=== PATIENT | male | born 2000 | race Two or more races ===

== ENCOUNTER 2020-04-06 10:37 | Emergency (ER) | payer OTHER ==
[~2020-04-06] VITALS: Ht 177.8 cm; Wt 65.9 kg
[2020-04-06 10:53] VITALS: BP 131/95
--- NOTE | 2020-04-06 11:29 | PHYS DOC ---
Past History Past Medical History: No Pertinent History Past Surgical History: No Surgical History Alcohol Use: None General Adult EDM: Chief Complaint: CHEST PAIN HPI: HPI: 19-year-old male presents with chest pain. The chest pain started around 7 AM after he got off work. He works overnight. He has been having intermittent cough for the last couple of weeks. He is a smoker. The chest pain was a burning pressure sensation in started after he had a more significant coughing fit with some blood-tinged sputum. He denies vomiting. Denies fever chills. No known COVID-19 exposures. He typically coughs every morning when he wakes up and it decreases throughout the day. Review of Systems: Review of Systems: Constitutional: Denies fever or chills Eyes: Denies change in visual acuity HENT: Denies nasal congestion or sore throat Respiratory: cough without shortness of breath Cardiovascular: Chest pain GI: Denies abdominal pain, nausea, vomiting, bloody stools or diarrhea : Denies dysuria Musculoskeletal: Denies back pain or joint pain Integument: Denies rash Neurologic: Denies headache, focal weakness or sensory changes Endocrine: Denies polyuria or polydipsia Lymphatic: Denies swollen glands Psychiatric: Denies depression or anxiety Heart Score: HEART Score for Chest Pain: HEART Score for Chest Pain Response (Comments) Value History Slighlty/Non-Suspicious 0 ECG Normal 0 Age < 45 0 Risk Factors 1 or 2 Risk Factors 1 Troponin < Normal Limit 0 Total 1 Risk Factors: Risk Factors: DM, Current or recent (<one month) smoker, HTN, HLP, family history of CAD, obesity. Risk Scores: Score 0 - 3: 2.5% MACE over next 6 weeks - Discharge Home Score 4 - 6: 20.3% MACE over next 6 weeks - Admit for Clinical Observation Score 7 - 10: 72.7% MACE over next 6 weeks - Early Invasive Strategies Allergies: Allergies: Allergies Coded Allergies Type Severity Reaction Last Updated Verified No Known Drug Allergies 04/06/20 No Physical Exam: PE: Constitutional: Well developed, well nourished, no acute distress, non-toxic appearance. [] HENT: Normocephalic, atraumatic, bilateral external ears normal, oropharynx moist, no oral exudates, nose normal. [] Eyes: PERRLA, EOMI, conjunctiva normal, no discharge. [] Neck: Normal range of motion, no tenderness, supple, no stridor. [] Cardiovascular:Heart rate regular rhythm, no murmur [] Lungs & Thorax: Bilateral breath sounds clear to auscultation [] Abdomen: Bowel sounds normal, soft, no tenderness, no masses, no pulsatile masses. [] Skin: Warm, dry, no erythema, no rash. [] Back: No tenderness, no CVA tenderness. [] Extremities: No tenderness, no cyanosis, no clubbing, ROM intact, no edema. [] Neurologic: Alert and oriented X 3, normal motor function, normal sensory function, no focal deficits noted. [] Psychologic: Affect normal, judgement normal, mood normal. [] Current Patient Data: Vital Signs: Vital Signs Date Time Temp Pulse Resp B/P (MAP) Pulse Ox O2 Delivery O2 Flow Rate FiO2 04/06/20 10:53 98.4 80 18 131/95 (107) 99 EKG: EKG: Sinus rhythm, rate 69, normal axis, no ST elevations or depressions. [] Radiology/Procedures: Radiology/Procedures: [] Impressions: CHEST AP ONLY History: Chest pain Comparison: None. Findings: Single view of the chest is submitted. There is no infiltrate, pneumothorax, or effusion. The pericardial cardiac silhouette is within normal limits in size. Impression: 1. There is no radiographic evidence of acute cardiopulmonary disease. Electronically signed by: Ramona Antunez MD (04/06/2020 11:34 AM) [id number] DICTATED AND SIGNED BY: RAMONA ANTUNEZ MD DATE: 04/06/20 1134 CC: LONI HAN DO; PCP,NO ~ Course & Med Decision Making: Course & Med Decision Making Pertinent Labs and Imaging studies reviewed. (See chart for details) The patient's labs are unremarkable. His chest x-ray is unremarkable. His EKG is unremarkable. His troponin is negative. I believe the patient has had some blood-tinged sputum from coughing hard. I have given him a GI cocktail to coat the soreness in his throat. His heart score is a 1. He is stable for discharge at this time. [] Dragon Disclaimer: Dragon Disclaimer: This electronic medical record was generated, in whole or in part, using a voice recognition dictation system. Departure Departure: Impression: Primary Impression: Chest pain Qualified Codes: R07.9 - Chest pain, unspecified Additional Impression: Cough Disposition: HOME/RESIDENCE PRIOR TO ADM Condition: STABLE Referrals: PCP,NO (PCP) Patient Instructions: Chest Pain (Nonspecific), [id number] Justification of Admission: Justification of Admission: Justification of Admission Dx: N/A LONI HAN DO Apr 06, 2020 11:29
[2020-04-06] MEDS ORDERED: LIDO:MAALOX 1:1 20 ML SINGLE DOSE. PO ONE (11:30)
--- NOTE | 2020-04-06 11:37 | RAD ---
CHEST AP ONLY History: Chest pain Comparison: None. Findings: Single view of the chest is submitted. There is no infiltrate, pneumothorax, or effusion. The pericardial cardiac silhouette is within normal limits in size. Impression: 1. There is no radiographic evidence of acute cardiopulmonary disease. Electronically signed by: Juan Daniel Fink MD (04/06/2020 11:34 AM) [id number]
[2020-04-06 12:01] LABS: BASO % 1 % (0-3); EOS # 0.1 x10^3/uL (0.0-0.7); EOS % 1 % (0-3); HEMATOCRIT 45.9 % (39.0-53.0); HEMOGLOBIN 15.6 g/dL (13.0-17.5); LYMPH # 2.2 x10^3/uL (1.0-4.8); LYMPH % 36 % (24-48); MEAN CORPUSCULAR HEMOGLOBIN 31 pg (25-35); MEAN CORPUSCULAR HGB CONC 34 g/dL (31-37); MEAN CORPUSCULAR VOLUME 90 fL (79-100); MONO # 0.6 x10^3/uL (0.0-1.1); MONO % 9 % (0-9); NEUT # 3.2 x10^3uL (1.8-7.7); NEUT % 53 % (31-73); PLATELET COUNT 273 x10^3/uL (140-400); RED CELL DISTRIBUTION WIDTH 12.5 % (11.5-14.5); WHITE BLOOD COUNT 6.1 x10^3/uL (4.0-11.0)
[2020-04-06 12:06] LABS: GFR 96.3; POTASSIUM 3.4 mmol/L (3.5-5.1)
[2020-04-06 12:12] LABS: ALBUMIN 4.1 g/dL (3.4-5.0); ALBUMIN/GLOBULIN RATIO 1.1 (1.0-1.7); TOTAL BILIRUBIN 0.3 mg/dL (0.2-1.0); TOTAL PROTEIN 7.8 g/dL (6.4-8.2)
--- NOTE | 2020-04-06 19:58 | EKG ---
[address] [address] Test Date: 2020-04-06 Test Time: 11:10:44 Pat Name: ELENA RUEDA Department: Room: Gender: M Manager Of Compliance: : 2000 Requested By: LONI HAN Order Number: [id number] Reading MD: Measurements Intervals [place] Rate: 69 P: 40 [place]: 166 QRS: 36 QRSD: 88 T: 27 QT: 378 QTc: 411 Interpretive Statements SINUS RHYTHM OTHERWISE NORMAL ECG RI6.02 No previous ECG available for comparison
== END 2020-04-06 12:40 | disposition home or self-care (01) ==
LOC: ER 10:37
DX: R07.89 Other chest pain (principal); R05 Cough; R09.3 Abnormal sputum
CPT/HCPCS: 36415; 71045; 80053; 84484; 85025; 93005; 99285

== ENCOUNTER 2020-09-20 01:37 | Emergency (ER) | payer OTHER ==
[~2020-09-20] VITALS: Ht 177.8 cm; Wt 65.9 kg
--- NOTE | 2020-09-20 01:46 | PHYS DOC ---
Past History Past Medical History: No Pertinent History Past Surgical History: No Surgical History Alcohol Use: None General Adult HPI: HPI: '..". I did something stupid.. I drank to much tonight.....about a bottle 1/2 bottle of [employer] [place] and took 3 of my Hydrocodones tonight... I got the hydro's for my dental pain... I got a follow up dental apt. ..Well I guess ..I went to sleep...and my thought I was having a seizure..be cause I started to throw up...I had a seizure once when I got a head injury playing foot ball in high school..... but I didnt have a seizure.. I didnt bite my tongue and.. or wet my self.. I probably need to drink less.. my dad an alcoholic... I just want to go home and get some sleep... I got a shift to cover in the morning.... I guess they paul paniced....because they could not wake me up at first... and started CPR on me...." " ..Look I am fine... I just drank a little too much alcohol tonight.. and that with the dental pain meds..it knocked me on my butt"... " I don't want any labs or x ray ..ekg......Just let me go home.. and I will not make this mistake again..." " ..I am not on any other drugs.." Patient is a 19 year old male who presents with above hx. and complaints of excessive alcohol intake tonight and taking 3 hydrocodone's which he had for dental pain. Patient issued the hydrocodone's for dental pain in teeth 17 and 18. Patient does admit to drinking approximately a little over one half bottle of [place] [employer] tonight. Patient does admit to seizure when he was in high school from head injury playing football in 2016.. At that time he was on some anti seizure meds but has not been on any meds for years. Patient has had some recent problems with stress related to working in the [employer] at [employer]. 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 Keira darnell states he has no pain. Does not want any work-up at all. Request to be discharged immediately. Did talk to she advised that he does have night tremors when he first falls asleep. She advised he did drink excessively tonight and earlier he did attempt to vomit. She advises she called the ambulance when she could not get him to wake up. She advises side arm was put up so there was no danger with the weapon in the house. . Patient is reportedly not suicidal or homicidal and his also confirms these are not risks. She was concerned that he did drink too much alcohol tonight. Patient does smoke tobacco. Did have an ED evaluation in 04/06/2020 for chest pain and cough. Patient denies any travel or specific ill contacts. Pt reports in good health and works out every day.. Frequent PT testing ect. 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 Review of Systems: Review of Systems: Constitutional: Denies fever or chills Eyes: Denies change in visual acuity HENT: Denies nasal congestion or sore throat . Complaints of dental pain Respiratory: Denies cough or shortness of breath Cardiovascular: Denies chest pain or edema GI: Denies abdominal pain, bloody stools or diarrhea .Hx.of nausea, vomiting, x1 : Denies dysuria Musculoskeletal: Denies back pain or joint pain Integument: Denies rash Neurologic: Denies headache, focal weakness or sensory changes . History of possible seizure Endocrine: Denies polyuria or polydipsia Lymphatic: Denies swollen glands Psychiatric: Denies depression or anxiety. Denies suicidal or homicidal ideation. Does admit to consumption of excessive amount of alcohol tonight. Family History: Family History: Father has history of alcoholism, Current Medications: Current Meds: See nursing for home meds Allergies: Allergies: Allergies Coded Allergies Type Severity Reaction Last Updated Verified No Known Drug Allergies 04/06/20 No Physical Exam: PE: Constitutional: Well developed, well nourished, no acute distress, non-toxic appearance. [] HENT: Normocephalic, atraumatic, bilateral external ears normal, oropharynx moist, no oral exudates, nose normal. Small scar right eyebrow. No bite gaspar of tongue. Does have pain and teeth 17 and 18 Eyes: PERRLA, EOMI, conjunctiva normal, no discharge. [] Neck: Normal range of motion, no tenderness, supple, no stridor. [] Cardiovascular:Heart rate regular rhythm, no murmur [] Lungs & Thorax: Bilateral breath sounds clear to auscultation [] Abdomen: Bowel sounds normal, soft, no tenderness, no masses, no pulsatile masses. Circumcised male. Skin: Warm, dry, no erythema, no rash. [] Back: No tenderness, no CVA tenderness. [] Extremities: No tenderness, no cyanosis, no clubbing, ROM intact, no edema. [] Neurologic: Alert and oriented X 3, normal motor function, normal sensory function, no focal deficits noted. [] DTRs +2 patella and brachial. No drift. 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 Amatory without problems. Psychologic: Affect normal, judgement normal, mood normal. [] EKG: EKG: Refuses [] Radiology/Procedures: Radiology/Procedures: Refuses x-rays or CT [] Heart Score: HEART Score for Chest Pain: HEART Score for Chest Pain Response (Comments) Value History Slighlty/Non-Suspicious 0 ECG Normal 0 Age < 45 0 Risk Factors 1 or 2 Risk Factors 1 Total 1 Risk Factors: Risk Factors: DM, Current or recent (<one month) smoker, HTN, HLP, family history of CAD, obesity. Pt. declined lab,work or EKG or CXR. Pt.monitor showed normal sinus rhythm. No obvious acute morphology Risk Scores: Score 0 - 3: 2.5% MACE over next 6 weeks - Discharge Home Score 4 - 6: 20.3% MACE over next 6 weeks - Admit for Clinical Observation Score 7 - 10: 72.7% MACE over next 6 weeks - Early Invasive Strategies Course & Med Decision Making: Course & Med Decision Making Pertinent Labs and Imaging studies reviewed. (See chart for details) Patient currently refusing labs and x-rays. Did agree to an Accu-Chek= 107. Patient encouraged not to drink excessive alcohol and especially not take hydrocodone when he does drink alcohol. Patient advised not to drive or do hazardous activity until released by primary. Patient return if any concerns. Consider follow-up counseling center if he is having problems with alcohol abuse. Keep dental follow-up follow-up. Impression: 1. Excessive alcohol intake 2. Dental pain- teeth 17 and18 3. Possible seizure or night tremors Arik Disclaimer: Arik Disclaimer: This electronic medical record was generated, in whole or in part, using a voice recognition dictation system. Departure Departure: Referrals: PCP,NO (PCP) Arik Disclaimer This chart was dictated in whole or in part using Voice Recognition software in a busy, high-work load, and often noisy Emergency Department environment. It may contain unintended and wholly unrecognized errors or omissions. Dragon Disclaimer This chart was dictated in whole or in part using Voice Recognition software in a busy, high-work load, and often noisy Emergency Department environment. It may contain unintended and wholly unrecognized errors or omissions. LILIAN LYNN MD Sep 20, 2020 01:46
[2020-09-20 02:20] VITALS: BP 134/68
== END 2020-09-20 02:20 | disposition home or self-care (01) ==
LOC: ER 01:37
DX: R78.0 Finding of alcohol in blood (principal); K08.89 Other specified disorders of teeth and supporting structures; R11.2 Nausea with vomiting, unspecified
CPT/HCPCS: 82947; 99283

== ENCOUNTER 2020-12-01 08:12 | Emergency (ER) | payer SELFPAY ==
[~2020-12-01] VITALS: Ht 177.8 cm; Wt 75.6 kg
[2020-12-01] MEDS ORDERED: ONDANSETRON PF 4 MG/2 ML VIAL. IVP ONE (08:30)
[2020-12-01] MEDS ORDERED: ONDANSETRON ODT 4 MG TAB.RAPDIS ONE (08:31)
--- NOTE | 2020-12-01 08:38 | RAD ---
XR CHEST 1V History: Reason: cough / Spl. Instructions: / History: Comparison: April 06, 2020 Findings: Ill-defined right basilar opacities. No pleural effusion. No pneumothorax. Normal heart size. Impression: 1. Ill-defined right basilar opacities, may represent atelectasis or developing infiltrates includin g viral pneumonia. Electronically signed by: Herb Dumont DO (12/01/2020 8:36 AM) [facility]
[2020-12-01] MEDS ORDERED: FAMOTIDINE 20 MG/2 ML VIAL ONE (08:40)
[2020-12-01] MEDS ORDERED: DEXAMETHASONE SOD PHOS 10 MG/ML VIAL. ONE (08:41)
[2020-12-01] MEDS ORDERED: FAMOTIDINE 20 MG TABLET PO ONE (08:45)
[2020-12-01] MEDS ORDERED: DEXAMETHASONE SOD PHOS 10 MG/ML VIAL. IV ONE (08:45)
[2020-12-01] MEDS ORDERED: ONDANSETRON ODT 4 MG TAB.RAPDIS PO ONE (08:45)
[2020-12-01] MEDS ORDERED: FAMOTIDINE 20 MG/2 ML VIAL IVP ONE (09:00)
[2020-12-01 09:10] LABS: BASO % 0 % (0-3); EOS % 0 % (0-3); HEMATOCRIT 42.5 % (39.0-53.0); HEMOGLOBIN 14.2 g/dL (13.0-17.5); LYMPH # 1.3 x10^3/uL (1.0-4.8); LYMPH % 8 % (24-48); MEAN CORPUSCULAR HEMOGLOBIN 30 pg (25-35); MEAN CORPUSCULAR HGB CONC 34 g/dL (31-37); MEAN CORPUSCULAR VOLUME 89 fL (79-100); MONO # 0.6 x10^3/uL (0.0-1.1); MONO % 3 % (0-9); NEUT # 15.6 x10^3uL (1.8-7.7); NEUT % 89 % (31-73); PLATELET COUNT 365 x10^3/uL (140-400); RED BLOOD COUNT 4.76 x10^6/uL (4.30-5.70); RED CELL DISTRIBUTION WIDTH 12.3 % (11.5-14.5); WHITE BLOOD COUNT 17.6 x10^3/uL (4.0-11.0)
[2020-12-01 09:22] LABS: CALCIUM 9.5 mg/dL (8.5-10.1); CREATININE 1.3 mg/dL (0.7-1.3); GFR 70.4; POTASSIUM 3.2 mmol/L (3.5-5.1)
[2020-12-01] MEDS ORDERED: IV NORMAL SALINE 1,000ML 1,000 ML IV ONE (09:30)
[2020-12-01 09:35] LABS: ALBUMIN 3.6 g/dL (3.4-5.0); ALBUMIN/GLOBULIN RATIO 0.7 (1.0-1.7); C REACTIVE PROTEIN 123.3 mg/L (0-3.3); TOTAL BILIRUBIN 1.8 mg/dL (0.2-1.0); TOTAL PROTEIN 9.1 g/dL (6.4-8.2)
[2020-12-01] MEDS ORDERED: ONDA4TAB7 PO (10:14)
[2020-12-01] MEDS ORDERED: GUAI118L13 PO (10:14)
[2020-12-01] MEDS ORDERED: FAMO-63 PO (10:14)
[2020-12-01] MEDS ORDERED: PRED50TA PO (10:14)
--- NOTE | 2020-12-01 10:14 | PHYS DOC ---
Past History Past Medical History: Asthma, Seizure Past Surgical History: No Surgical History Alcohol Use: None Adult General Chief Complaint Chief Complaint: HEMATEMESIS/VOMITING BLOOD [facility] HPI Patient is a 20-year-old male who presents to the emergency room complaining of cough, body aches, nausea, vomiting, diarrhea. Patient states that he started having some cough and shortness of breath earlier this week. He then developed some nausea and vomiting. He states that last night he had a large amount of vomiting and he had some blood specks in his vomit this morning. He states that he is also been having diarrhea and sometimes has diarrhea when he vomits. He states that his chest feels tight and that he does feel short of breath when he gets up and moves around. He is able to talk and walk at the same time and he still able to walk to the bathroom without difficulty. He has not had any kind of fevers. Does have a history of asthma but does not have an inhaler at home. Review of Systems Review of Systems Complete ROS is negative unless otherwise documented in HPI Current Medications Current Medications Current Medications Medications (Trade) Dose Ordered Sig/Jesus Start Time Stop Time Status Last Admin Dose Admin Dexamethasone Sodium Phosphate (Decadron) 10 mg STK-MED ONCE 12/01/20 08:41 12/01/20 08:41 DC Famotidine (Pepcid Vial) 20 mg 1X ONCE 12/01/20 09:00 12/01/20 09:01 DC 12/01/20 08:52 20 MG Famotidine (Pepcid) 20 mg 1X ONCE 12/01/20 08:45 12/01/20 08:46 DC Ondansetron HCl (Zofran Odt) 4 mg 1X ONCE 12/01/20 08:45 12/01/20 08:46 DC 12/01/20 08:35 4 MG Ondansetron HCl (Zofran) 4 mg 1X ONCE 12/01/20 08:30 12/01/20 08:35 DC Sodium Chloride 1,000 ml @ 1,000 mls/hr 1X ONCE 12/01/20 09:30 12/01/20 10:29 Allergies Allergies Allergies Coded Allergies Type Severity Reaction Last Updated Verified No Known Drug Allergies 04/06/20 No Physical Exam Physical Exam General: Awake, alert, NAD. Well Nourished, well hydrated. Cooperative HEENT: Atraumatic, EOMI, PERRL, airway patent, moist oral mucosa Neck: Supple, trachea midline Respiratory: Decreased breath sounds bilaterally with minimal wheezing, normal effort, no wheezing/crackles CV: Tachycardic, no murmur, cap refill <2 GI: Soft, nondistended, nontender, no masses MSK: No obvious deformities Skin: Warm, dry, intact Neuro: A&O x3, speech NL, sensory and motor grossly intact, no focal deficits Psych: Normal affect, normal mood, not suicidal or homicidal Current Patient Data Vital Signs Vital Signs Date Time Temp Pulse Resp B/P (MAP) Pulse Ox O2 Delivery O2 Flow Rate FiO2 12/01/20 08:13 100.0 115 22 124/84 (97) 93 Room Air Lab Results Laboratory Tests Test 12/01/20 08:50 White Blood Count 17.6 x10^3/uL (4.0-11.0) H Red Blood Count 4.76 x10^6/uL (4.30-5.70) Hemoglobin 14.2 g/dL (13.0-17.5) Hematocrit 42.5 % (39.0-53.0) Mean Corpuscular Volume 89 fL (79-100) Mean Corpuscular Hemoglobin 30 pg (25-35) Mean Corpuscular Hemoglobin Concent 34 g/dL (31-37) Red Cell Distribution Width 12.3 % (11.5-14.5) Platelet Count 365 x10^3/uL (140-400) Neutrophils (%) (Auto) 89 % (31-73) H Lymphocytes (%) (Auto) 8 % (24-48) L Monocytes (%) (Auto) 3 % (0-9) Eosinophils (%) (Auto) 0 % (0-3) Basophils (%) (Auto) 0 % (0-3) Neutrophils # (Auto) 15.6 x10^3uL (1.8-7.7) H Lymphocytes # (Auto) 1.3 x10^3/uL (1.0-4.8) Monocytes # (Auto) 0.6 x10^3/uL (0.0-1.1) Eosinophils # (Auto) 0.0 x10^3/uL (0.0-0.7) Basophils # (Auto) 0.0 x10^3/uL (0.0-0.2) Platelet Estimate Pending Sodium Level 137 mmol/L (136-145) Potassium Level 3.2 mmol/L (3.5-5.1) L Chloride Level 95 mmol/L (98-107) L Carbon Dioxide Level 26 mmol/L (21-32) Anion Gap 16 (6-14) H Blood Urea Nitrogen 12 mg/dL (8-26) Creatinine 1.3 mg/dL (0.7-1.3) Estimated GFR (Cockcroft-Gault) 70.4 BUN/Creatinine Ratio 9 (6-20) Glucose Level 108 mg/dL (70-99) H Calcium Level 9.5 mg/dL (8.5-10.1) Total Bilirubin 1.8 mg/dL (0.2-1.0) H Aspartate Amino Transferase (AST) 38 U/L (15-37) H Alanine Aminotransferase (ALT) 38 U/L (16-63) Alkaline Phosphatase 84 U/L (46-116) Troponin I Quantitative < 0.017 ng/mL (0-0.055) C-Reactive Protein 123.3 mg/L (0-3.3) H BT-Ott-D-Type Natriuretic Peptide 40 pg/mL (0-124) Total Protein 9.1 g/dL (6.4-8.2) H Albumin 3.6 g/dL (3.4-5.0) Albumin/Globulin Ratio 0.7 (1.0-1.7) L EKG EKG [] Radiology/Procedures Radiology/Procedures [] Heart Score Risk Factors: Risk Factors: DM, Current or recent (<one month) smoker, HTN, HLP, family history of CAD, obesity. Risk Scores: Risk Factors: DM, Current or recent (<one month) smoker, HTN, HLP, family history of CAD, obesity. Course & Med Decision Making Course & Med Decision Making Pertinent Labs and Imaging studies reviewed. (See chart for details) Patient is a 20-year-old male who presents to the emergency room with cough, shortness of breath, body aches, nausea, vomiting, diarrhea, loss of taste. At this time there is concern for the novel coronavirus 19. Risk stratifying work- up was ordered including chest x-ray, d-dimer, CPK, CRP, LDH, troponin, ferritin, CBC, CMP. Due to concern of COVID-19 I have discussed the importance of quarantining with the patient. I have discussed with them that they should avoid grocery stores, gas stations, pharmacies, work, friends/family's homes. I discussed with him that it is important that they do not expose themselves to anyone else for the next 14 days. Chest x-ray does show infiltrates at this time and patient will be treated with empiric antibiotics. I have discussed with the patient the course of the illness and we have discussed strict return precautions. At this time patient does not need admission as they are stable, however it is possible that they may get worse over the next few days and we have discussed the importance of coming back if they develop severe shortness of breath or any other symptoms that they are concerned about. Patient's test results and vitals while in the ED were fully reviewed and discussed with the patient. Patient is stable and at this time does not need admission to the hospital. We have discussed strict return precautions and the importance of following up with their Primary Care Physician. Patient stated understanding and was given an opportunity to ask any questions. Dragon Disclaimer Dragon Disclaimer This electronic medical record was generated, in whole or in part, using a voice recognition dictation system. Departure Departure: Impression: Primary Impression: Suspected 2019 novel coronavirus infection Disposition: 01 DC HOME SELF CARE/HOMELESS Condition: STABLE Referrals: PCP,ARIEL (PCP) Patient Instructions: Shortness of Breath Additional Instructions: Thank you for visiting [facility]. We appreciate you trusting us with your care. If any additional problems come up please don't hesitate to return to visit us. Follow up with your primary care provider so they can plan additional care if needed and know about the problem that you had today. If symptoms worsen come back to the Emergency Department. Any concerning symptoms that start such as chest pain, shortness of air, weakness or numbness on one side of the body, running high fevers or any other concerning symptoms return to the ER. You have a viral syndrome which may include symptoms like muscle aches, fevers, chills, runny nose, cough, sneezing, sore throat, nausea, vomiting, or diarrhea. One of the potential viruses that you may have is SARS-CoV-2, the virus that causes COVID-19, also known as the Coronavirus. You are just as likely to have a different viral infection such as the common cold, flu, etc. Most patients with the Coronavirus have mild symptoms and recover on their own. Resting, staying hydrated, and sleep based on known cases can be helpful. As of todays visit, you are well enough to go home and treat your symptoms with oral fluids and over the counter medications. Coronavirus testing is not performed on most people with mild symptoms who are being discharged from the emergency department. If Coronavirus testing was performed today the results will not be available for possibly up to 3-4 days. If your result is positive you will be contacted. Please follow the following precautions at home: 1. Stay home except to get medical care. 2. As advised by the CDC, we recommend that you stay in your home and minimize contact with other people. We do not want you to spread the infection. 3. Those who are older or have significant medical issues may have more severe symptoms from this infection. We recommend self-isolation FOR AT LEAST 7 DAYS after your 1st day of symptoms. AFTER you feel better please wait AT LEAST ANOTHER WEEK before returning to regular activities and being around other people. 4. IF you become sicker and have difficulty breathing, chest pain, are unable to eat/drink, severe vomiting, diarrhea, or weakness you may need to return to the Emergency Department. 5. You should restrict activities outside of your home, except for getting medical care. DO NOT go to work, school, or public areas. Avoid using public transportation, ride sharing, or taxis. 6. Separate yourself from other people in your home. You should use a separate bathroom if possible. 7. Avoid sharing personal household items such as dishes, cups, eating utensils, towels, etc. 8. Clean all high touch surfaces every day (door knobs, counter tops, etc). Use a household cleaning spray or wipe per label instructions. 9. Clean your hands often. Wash your hands with soap and water for at least 20 seconds. 10. Cover your mouth and nose when you cough or sneeze. 11. Throw used tissues in the trash and immediately wash your hands. For additional resources please visit the CDC website or the [facility] ([phone]), you may also call 211 for further information. Scripts Ondansetron Hcl (ZOFRAN) 4 Mg Tablet 1 TAB PO Q6HRS PRN for NAUSEA, #20 TAB Prov: CINDY MARTINEZ MD 12/01/20 Famotidine (PEPCID) 20 Mg Tablet 1 TAB PO BID for gastritis, #10 TAB 0 Refills Prov: CIDNY MARTINEZ MD 12/01/20 Guaifenesin/Codeine Phosphate (GUAIFENESIN-CODEINE SYRUP) 118 Ml Liquid 5 ML PO Q6HRS PRN for COUGH, #120 ML Prov: CINDY MARTINEZ MD 12/01/20 Prednisone (PREDNISONE) 50 Mg Tablet 1 TAB PO DAILY for covid, #5 TAB You received this medication in the emergency room today. You will starting your next dose tomorrow. Prov: CINDY MARTINEZ MD 12/01/20 CINDY MARTINEZ MD Dec 01, 2020 10:14
[2020-12-01] MEDS ORDERED: guaiFENesin/CODEINE 100mg/10mg 5 ML LIQUID PO PRN (10:15)
[2020-12-01 10:20] VITALS: BP 129/72
[2020-12-01] MEDS ORDERED: guaiFENesin/CODEINE 100mg/10mg 5 ML LIQUID PO ONE (10:30)
[2020-12-01 14:03] LABS: % ATYL 3 % (0-0); % BANDS 7 % (0-9); % LYMPHS 11 % (24-48); % MONOS 1 % (0-10); % SEGS 78 % (35-66)
[2020-12-01 14:04] LABS: PLT ESTIMATE ADEQUATE (ADEQUATE)
== END 2020-12-01 10:50 | disposition home or self-care (01) ==
LOC: ER 08:12
DX: J45.909 Unspecified asthma, uncomplicated (principal); R06.02 Shortness of breath; Z20.822 Contact with and (suspected) exposure to COVID-19
CPT/HCPCS: 36415; 71045; 80053; 83880; 84484; 85007; 85025; 86140; 96361; 96374; 96375; 99285; C9803; J1100; J3490; J7030; Q0162; U0003

== ENCOUNTER 2020-12-02 22:41 | Emergency (ER) | payer SELFPAY ==
[~2020-12-02] VITALS: Ht 177.8 cm; Wt 75.6 kg
[~2020-12-02 22:41] MED LIST: FAMO-63 PO; GUAI118L13 PO; ONDA4TAB7 PO; PRED50TA PO
[2020-12-02] MEDS ORDERED: guaiFENesin/CODEINE 100mg/10mg 5 ML LIQUID PO PRN (23:45)
[2020-12-03] MEDS ORDERED: DEXAMETHASONE 4 MG TABLET PO ONE
[2020-12-03] MEDS ORDERED: ONDANSETRON ODT 4 MG TAB.RAPDIS PO ONE
[2020-12-03] MEDS ORDERED: DOXY100C2 PO (00:27)
[2020-12-03 00:50] VITALS: BP 124/60
[2020-12-03] MEDS ORDERED: DOXYCYCLINE HYCLATE 100 MG TABLET PO ONE (01:00)
--- NOTE | 2020-12-23 02:13 | PHYS DOC ---
Past History Past Medical History: Asthma, Seizure Past Surgical History: No Surgical History Alcohol Use: None Adult General Chief Complaint Chief Complaint: SHORTNESS OF BREATH HPI HPI Patient is a 20-year-old male with a past medical history significant for asthma, who presents with a 2-day history of cough, some shortness of breath and nausea. Patient was in the emergency department day before and Covid results pending. Review of Systems Review of Systems Review of systems otherwise unremarkable except noted in HPI Current Medications Current Medications Current Medications Medications (Trade) Dose Ordered Sig/Jesus Start Time Stop Time Status Last Admin Dose Admin Dexamethasone (Decadron) 6 mg 1X ONCE 12/03/20 00:00 12/03/20 00:01 DC 12/03/20 00:20 6 MG Doxycycline Hyclate (Vibra-Tab) 100 mg 1X ONCE 12/03/20 01:00 12/03/20 01:01 DC 12/03/20 00:45 100 MG Guaifenesin/ Codeine Phosphate (Robitussin Ac) 10 ml PRN Q6HRS PRN 12/02/20 23:45 12/03/20 01:28 DC 12/03/20 00:20 10 ML Ondansetron HCl (Zofran Odt) 4 mg 1X ONCE 12/03/20 00:00 12/03/20 00:01 DC 12/03/20 00:20 4 MG Allergies Allergies Allergies Coded Allergies Type Severity Reaction Last Updated Verified No Known Drug Allergies 04/06/20 No Physical Exam Physical Exam Constitutional: Well developed, well nourished, no acute distress, non-toxic appearance. [] HENT: Normocephalic, atraumatic, bilateral external ears normal, oropharynx moist, no oral exudates, nose normal. [] Cardiovascular: Sinus tachycardia Lungs & Thorax: Bilateral rhonchi with wheeze Abdomen: Bowel sounds normal, soft, no tenderness, no masses, no pulsatile masses. [] Skin: Warm, dry, no erythema, no rash. [] Extremities: No tenderness, no cyanosis, no clubbing, ROM intact, no edema. [] Neurologic: Alert and oriented X 3, normal motor function, normal sensory function, no focal deficits noted. [] Psychologic: Affect normal, judgement normal, mood normal. [] Current Patient Data Vital Signs Vital Signs Date Time Temp Pulse Resp B/P (MAP) Pulse Ox O2 Delivery O2 Flow Rate FiO2 12/03/20 00:50 98.6 100 124/60 (81) 95 12/02/20 22:41 18 Room Air EKG EKG [] Radiology/Procedures Radiology/Procedures []Findings: Ill-defined right basilar opacities. No pleural effusion. No pneumothorax. Poornima l heart size. Impression: 1. Ill-defined right basilar opacities, may represent atelectasis or developing infiltrates including viral pneumonia. Electronically signed by: Herb Dumont DO (12/01/2020 8:36 AM) [facility] Heart Score C/O Chest Pain: No Risk Factors: Risk Factors: DM, Current or recent (<one month) smoker, HTN, HLP, family history of CAD, obesity. Risk Scores: Risk Factors: DM, Current or recent (<one month) smoker, HTN, HLP, family history of CAD, obesity. Course & Med Decision Making Course & Med Decision Making Patient is a 20-year-old male who presents with 2 days of dry cough, nausea Vital signs notable for sinus tachycardia. Physical exam noted above. Given patient's history of asthma and wheeze, given dexamethasone. Given Zofran for nausea and codeine cough syrup. Imaging noted above with probable atypical versus viral pneumonia. Given first dose of doxycycline in the ED. [] Sent home with cough syrup. Advised to follow-up with primary care physician. Gave return precautions to the ED. Patient grateful, agreed with plan of discharge. Dragon Disclaimer Dragon Disclaimer This electronic medical record was generated, in whole or in part, using a voice recognition dictation system. Departure Departure: Impression: Primary Impression: Pneumonia Disposition: 01 DC HOME SELF CARE/HOMELESS Condition: IMPROVED Patient Instructions: Pneumonia, Adult Additional Instructions: Please read all of your attached information. Please take your all your medications as prescribed. Please call your primary care physician first thing in the morning to set up a post ER follow-up visit. Please continue quarantine until your Covid test has resulted and inform anybody living with you that they should probably quarantine as well as in the instructions. Please come back to the ED with new or concerning symptoms. Scripts Doxycycline Hyclate (DOXYCYCLINE HYCLATE) 100 Mg Capsule 1 CAP PO BID for pna for 7 Days, #13 CAP Prov: NAHOMI HERNANDEZ MD 12/03/20 NAHOMI HERNANDEZ MD Dec 23, 2020 02:13
== END 2020-12-03 00:50 | disposition home or self-care (01) ==
LOC: ER 22:41
DX: J18.9 Pneumonia, unspecified organism (principal); J45.909 Unspecified asthma, uncomplicated
CPT/HCPCS: 99284; J8540; Q0162